=== PATIENT | male | born 1940 | race Caucasian/White ===

== ENCOUNTER 2022-02-08 08:32 | Outpatient (CLI) | payer MEDICARE, OTHER ==
[~2022-02-08] VITALS: Ht 172.7 cm; Wt 83.9 kg
[2022-02-08 08:53] LABS: TOTAL HEMOGLOBIN 13.6 G/dl (14.0-18.0)
[2022-02-08] MEDS ORDERED: albuterol 2.5 MG/3 ML nebule NEB PRN (09:25)
== END 2022-02-08 23:59 | disposition home or self-care (01) ==
LOC: RT 08:32
PROVIDERS: ATTEND Internal Medicine Cardiovascular Disease
DX: R94.2 Abnormal results of pulmonary function studies (principal); Z79.899 Other long term (current) drug therapy
CPT/HCPCS: 71046; 85018; 94060; 94727; 94729; 94760

== ENCOUNTER 2023-04-11 08:31 | Outpatient (CLI) | payer MEDICARE, OTHER ==
[~2023-04-11] VITALS: Ht 173.4 cm; Wt 83.9 kg
[2023-04-11 08:59] LABS: TOTAL HEMOGLOBIN 14.3 G/dl (14.0-17.9)
[2023-04-11] MEDS ORDERED: albuterol 2.5 MG/3 ML nebule NEB ONE (09:28)
[2023-04-11 09:29] VITALS: PULSE 58; RESP 14; O2SAT 98
== END 2023-04-11 23:59 | disposition home or self-care (01) ==
LOC: RT 08:31
PROVIDERS: ATTEND Internal Medicine Cardiovascular Disease
DX: R94.2 Abnormal results of pulmonary function studies (principal); R06.02 Shortness of breath; Z79.899 Other long term (current) drug therapy; Z87.891 Personal history of nicotine dependence
CPT/HCPCS: 85018; 94060; 94727; 94729; 94760

== ENCOUNTER 2024-04-21 09:04 | Day surgery (SDC) | payer MEDICARE, OTHER ==
[2024-04-20 14:14] LABS: BASOPHILS % (AUTO) 0.6 % (0-1); EOSINOPHILS # (AUTO) 0.3 X10'3 (0-0.9); EOSINOPHILS % (AUTO) 4.7 % (0-6); HEMATOCRIT 40.4 % (42.0-52.0); HEMOGLOBIN 13.9 g/dl (14.0-17.9); LYMPHOCYTES # (AUTO) 1.8 X10'3 (1.1-4.8); MEAN CORPUSCULAR HEMOGLOBIN 36.6 PG (27.0-31.0); MEAN CORPUSCULAR HGB CONC 34.3 g/dL (33.0-36.5); MEAN CORPUSCULAR VOLUME 106.6 FL (78-98); MEAN PLATELET VOLUME 8.6 FL (7.4-10.4); MONOCYTES # (AUTO) 0.4 X10'3 (0-0.9); MONOCYTES % (AUTO) 6.4 % (2-12); NEUTROPHILS # (AUTO) 3.3 X10'3 (1.8-7.7); NEUTROPHILS % (AUTO) 57.3 % (42-75); PLATELET COUNT 159 X10'3 (140-440); RED BLOOD COUNT 3.79 X10'6 (4.70-6.10); RED CELL DISTRIBUTION WIDTH 13.9 % (11.5-14.5); WHITE BLOOD COUNT 5.7 X10'3 (4.5-11.0)
[2024-04-20 14:25] LABS: APTT 26 SECONDS (22-32); INR 1.1 INR; PROTHROMBIN TIME 11.1 SECONDS (9.0-12.0)
[2024-04-20 14:27] LABS: ALBUMIN 3.6 G/DL (3.4-5.0); ANION GAP 7 (8-16); BLOOD UREA NITROGEN 16 MG/DL (7-18); CALCIUM 8.8 MG/DL (8.5-10.1); CHLORIDE 108 MMOL/L (99-107); GLUCOSE 143 MG/DL (70-104); POTASSIUM 4.2 MMOL/L (3.5-5.1); SODIUM 143 MMOL/L (135-145); TOTAL CARBON DIOXIDE 27.9 MMOL/L (24-32); eGFR 71 ML/MIN
[~2024-04-21] VITALS: Ht 177.8 cm; Wt 84.2 kg
[2024-04-21] VITALS (10 sets, daily range): BP systolic 127–174; BP diastolic 58–93; PULSE 53–64; RESP 11–16; TEMP 98; O2SAT 94–99
[2024-04-21] MEDS ORDERED: LISI10TA27 PO (09:42)
[2024-04-21] MEDS ORDERED: AMIO100T4 PO (09:42)
[2024-04-21] MEDS ORDERED: RED600CA2 PO (09:42)
[2024-04-21] MEDS ORDERED: FLO0.4C PO (09:42)
[2024-04-21] MEDS ORDERED: vitamin D3 PO (09:42)
[2024-04-21] MEDS ORDERED: FINA5TAB11 PO (09:42)
[2024-04-21] MEDS ORDERED: ROSU10TA72 PO (09:42)
[2024-04-21] MEDS ORDERED: APIX5TAB3 PO (09:42)
[2024-04-21] MEDS ORDERED: OMEG100037 PO (09:42)
[2024-04-21] MEDS ORDERED: cefazolin 2gm/D5W 100mL 100 ML IV ONE (09:58)
[2024-04-21] MEDS ORDERED: normal saline 1000ml 1,000 ML IV SCH (09:59)
[2024-04-21] MEDS ORDERED: fentaNYL/PF 50MCG/1 ML 2ML syringe ONE (11:48)
[2024-04-21] MEDS ORDERED: LIDOcaine 1% W/epiNEPHrine 1:100,000 20ml vial ONE ×2 (11:48→12:44)
[2024-04-21] MEDS ORDERED: midazolam 1 mg/ML 2ml injection ONE ×2 (11:48→13:46)
[2024-04-21] MEDS ORDERED: ceFAZolin 1000mg inj ONE (11:49)
[2024-04-21] MEDS ORDERED: iohexol 350 MG/ML 50ML vial IV ONE (12:35)
[2024-04-21] MEDS ORDERED: diphenhydrAMINE 50 mg/ml inj ONE (13:52)
[2024-04-21] MEDS ORDERED: HYDROcodone/acetaminophen 10/325mg tab PO PRN (14:50)
[2024-04-21] MEDS ORDERED: HYDROcodone/acetaminophen 5mg/325mg tablet PO PRN (14:50)
[2024-04-21] MEDS: normal saline 1000ml 1,000 ML IV SCH (15:21)
[2024-04-21] MEDS: VANCOMYCIN 1,500MG in normal saline IV soln 300 ML IV ONE (15:21)
[2024-04-21] MEDS ORDERED: CEPH-585 PO (18:22)
== END 2024-04-21 19:40 | disposition home or self-care (01) ==
LOC: SSTAY O 09:04
PROVIDERS: ATTEND Internal Medicine Cardiovascular Disease
DX: I49.5 Sick sinus syndrome (principal); I45.10 Unspecified right bundle-branch block; I12.9 Hypertensive chronic kidney disease with stage 1 through stage 4 chronic kidney disease, or unspecified chronic kidney disease; N18.9 Chronic kidney disease, unspecified; E78.5 Hyperlipidemia, unspecified; I48.0 Paroxysmal atrial fibrillation; J44.9 Chronic obstructive pulmonary disease, unspecified; I42.9 Cardiomyopathy, unspecified; Z79.01 Long term (current) use of anticoagulants; Z79.899 Other long term (current) drug therapy; Z98.890 Other specified postprocedural states; Z82.49 Family history of ischemic heart disease and other diseases of the circulatory system
CPT/HCPCS: 33208; 36415; 71046; 80048; 85025; 85610; 85730; 93005; 99152; 99153; A4565; A6402; C1785; C1898; J0690; J1200; J2250; J3010; J3370; J3490; J7030; J7040; Q9967; Z7610; A6449